=== PATIENT | male | born 1945 | race Caucasian/White ===

== ENCOUNTER → 2018-05-24 | Emergency (ER) | payer OTHER ==
[~2018-05-24] VITALS: Ht 175.3 cm; Wt 87.1 kg
[~2018-05-24] MED LIST: COZAAR25 MG; LOSARTAN POTASS25 MG; SKELAXIN800 MG PO
== END | disposition left against medical advice (07) ==
LOC: ER 17:34
DX: Z53.20 Procedure and treatment not carried out because of patient's decision for unspecified reasons (principal)